=== PATIENT | female | born 1985 | race Caucasian/White ===

== ENCOUNTER → 2024-04-08 09:35 | Outpatient (CLI) | payer OTHER, SELFPAY ==
[2024-04-08 19:21] LABS: Add Manual Diff / Slide Review NO; Basophils Absolute Auto 100 /uL (0-100); Basophils Percent Auto 0.9 % (0-2); Eosinophils Absolute Auto 200 /uL (0-450); Hematocrit 39.7 % (36-46); Hemoglobin 13.8 g/dL (12.0-16.0); Lymphocytes Absolute Auto 2500 /uL (1100-4500); Lymphocytes Percent Auto 46.5 % (25-40); Mean Corpuscular HGB Conc 34.8 % (30-36); Mean Corpuscular Hemoglobin 29.1 PG (26-34); Mean Corpuscular Volume 83.7 fL (80-100); Monocytes Absolute Auto 400 /uL (0-900); Monocytes Percent Auto 7.4 % (3-14); Neutrophils Absolute Auto 2300 /uL (1500-7000); Neutrophils Percent Auto 42.2 % (50-75); Platelet Count 276 X10^3/uL (150-400); Red Blood Cell Count 4.75 X10^6/uL (4.0-5.2); Red Cell Distribution Width 12.7 % (11.6-14.8); White Blood Cell Count 5.5 X10^3/uL (4.5-11.0)
[2024-04-08 19:40] LABS: Alanine Aminotransferase 25 IU/L (<35); Albumin 4.2 g/dL (3.5-5.0); Albumin Globulin Ratio 1.4 (1.0-2.8); Alkaline Phosphatase 73 U/L (38-126); Aspartate Aminotransferase 28 IU/L (14-36); BUN Creatinine Ratio 18.5 (6-22); Bilirubin Total 0.6 mg/dL (0.2-1.3); Blood Urea Nitrogen 15 mg/dL (7-17); Calcium 9.1 mg/dL (8.4-10.2); Carbon Dioxide 23 mmol/L (22-32); Chloride 106 mmol/L (98-107); Cholesterol 183 mg/dL (140-199); Estimated Glomerular Filt Rate > 60 mL/min (>60); Glucose 89 mg/dL (70-100); HDL Cholesterol 68 mg/dL (40-60); HEMOLYSIS < 15 (0-50); LDL Cholesterol Calculated 96 mg/dL (<100); Sodium 137 mmol/L (137-145); Total Protein 7.2 g/dL (6.3-8.2); Triglycerides 96 mg/dL (35-150)
[2024-04-08 19:53] LABS: Vitamin D 25 Hydroxy (D3) 25.5 ng/mL (30.0-100.0)
[2024-04-08 20:08] LABS: Thyroid Stimulating Hormone 0.661 uIU/mL (0.47-4.68)
[2024-04-08 20:45] LABS: Folate 8.6 ng/mL (2.76-20.0); Vitamin B12 392 pg/mL (239-931)
== END ==
PROVIDERS: Family Provider Family Medicine; PCP Family Medicine; Visit Provider Family Medicine
DX: E66.9 Obesity, unspecified (principal); G47.00 Insomnia, unspecified; F41.9 Anxiety disorder, unspecified; R63.4 Abnormal weight loss; Z71.3 Dietary counseling and surveillance
CPT/HCPCS: 80053; 80061; 82306; 82607; 82746; 84443; 85025

== ENCOUNTER → 2024-08-12 15:30 | Outpatient (CLI) | payer OTHER, SELFPAY ==
--- NOTE | 2024-08-12 15:31 | DI.US.S_ITS ---
PROCEDURE: US PELVIC COMPLETE INDICATIONS: CHRONIC PAIN; DUB TECHNIQUE: Real-time scanning was performed of the pelvic organs, with image documentation. Additional endovaginal scanning was necessary due to incomplete visualization of the adnexal and endometrial structures by transabdominal scanning. COMPARISON: None. FINDINGS: Uterus: Uterus is anteverted and normal in size at 6.8 x 3.1 x 5.4 cm. The myometrium is homogeneous. The endometrium measures 9 mm combined thickness. Ovaries: The right ovary measures 1.8 x 2.5 x 2.0 cm, with a calculated ovarian volume of 4.7 cc. The left ovary measures 3.2 x 3.0 x 1.8 cm, with a calculated ovarian volume of 9.1 cc. Within the left ovary, there is a 1.7 x 1.5 x 1.7 cm thick-walled structure with central hypoechogenicity, likely representing a hemorrhagic cyst. The ovaries otherwise have a normal sonographic appearance. Less than 12 follicles can be seen in each ovary. No adnexal masses are seen. Other: No pathologic free abdominal or pelvic fluid. IMPRESSION: 1. Left ovarian 1.7 cm hemorrhagic cyst. This can be followed up in 2-3 menstrual cycles to confirm resolution. 2. Otherwise, no sonographic abnormality of the uterus or ovaries. We strive to produce accurate, complete, and clear reports of imaging services. To assist us in improving patient care, this report was composed using standard report templates and voice recognition software. Therefore, it may contain abnormal punctuation, insertions and/or omissions. Occasional wrong-word or sound-alike substitutions may occur. Though we review the report and make efforts to correct it, we do recommend that the report be read carefully in proper context to recognize any text inaccuracies. Dictated by: Nicholas Bhatt M.D. on 08/12/2024 at 19:53 Approved by: Nicholas Bhatt M.D. on 08/12/2024 at 19:56
== END ==
LOC: US 15:30
PROVIDERS: Family Provider Family Medicine; PCP Family Medicine; Referring Provider Family Medicine; Visit Provider Family Medicine
DX: N83.202 Unspecified ovarian cyst, left side (principal); R10.2 Pelvic and perineal pain; N93.9 Abnormal uterine and vaginal bleeding, unspecified; Z12.4 Encounter for screening for malignant neoplasm of cervix
CPT/HCPCS: 76830; 76856; 93975

== ENCOUNTER → 2024-08-13 11:30 | Outpatient (CLI) | payer OTHER, SELFPAY ==
[2024-08-13 19:38] LABS: Hematocrit 40.5 % (36-46); Hemoglobin 14.2 g/dL (12.0-16.0)
[2024-08-13 19:56] LABS: Erythrocyte Sedimentation Rate 8 MM/HR (0-20)
[2024-08-13 20:18] LABS: Thyroid Stimulating Hormone 1.04 uIU/mL (0.47-4.68)
[2024-08-13 20:23] LABS: Ferritin 36 ng/mL (6-137)
[2024-08-14 02:29] LABS: C-Reactive Protein Quant < 0.5 mg/dL (<1.0)
== END ==
PROVIDERS: Family Provider Family Medicine; PCP Family Medicine; Visit Provider Family Medicine
DX: N93.9 Abnormal uterine and vaginal bleeding, unspecified (principal); K59.00 Constipation, unspecified; R19.7 Diarrhea, unspecified; R10.9 Unspecified abdominal pain
CPT/HCPCS: 82728; 82784; 83516; 84443; 85014; 85018; 85651; 86140

== ENCOUNTER → 2024-09-24 11:07 | Outpatient (CLI) | payer OTHER, SELFPAY ==
[2024-09-24 19:56] LABS: Vitamin D 25 Hydroxy (D3) 32.2 ng/mL (30.0-100.0)
[2024-09-27 20:36] LABS: Deamidated Gliadin Ab IgA 5 units (0-19); Deamidated Gliadin Ab IgG 3 units (0-19); Immunoglobulin A,Qn 219 mg/dL (87-352); t-Transglutaminase IgA <2 U/mL (0-3)
[2024-10-04 15:10] LABS: DQ8 (DQA1 03XX, DQB1 0302) Positive (.)
== END ==
PROVIDERS: Family Provider Family Medicine; PCP Family Medicine; Visit Provider Family Medicine
DX: E55.9 Vitamin D deficiency, unspecified (principal); R89.4 Abnormal immunological findings in specimens from other organs, systems and tissues; K62.5 Hemorrhage of anus and rectum; R19.7 Diarrhea, unspecified; K59.00 Constipation, unspecified
CPT/HCPCS: 81377; 82306; 82784; 83516

== ENCOUNTER → 2025-01-30 14:36 | Outpatient (CLI) | payer OTHER, SELFPAY ==
--- NOTE | 2025-01-30 14:37 | DI.CT.S_ITS ---
PROCEDURE: CT FACIAL BONES WO CON INDICATIONS: Head injury 2 weeks ago with facial trauma. Headaches. TECHNIQUE: Noncontrast 2.5 mm thick axial images acquired from the mandible through the frontal sinuses, with coronal and sagittal reformatting. For radiation dose reduction, the following was used: automated exposure control, adjustment of mA and/or kV according to patient size. COMPARISON: None. FINDINGS: Image quality: Excellent. Bones and teeth: Orbital bo are intact. Sinus bo show no fracture or deformity. Nasal bones and septum are intact. Visualized portions of the mandible demonstrate no fractures or subluxation. Zygomatic arches are intact. Pterygoid plates are intact. Visualized portions of the skull base and auditory canals are intact. Sinuses: Mild maxillary sinus mucosal thickening. Mastoid air cells are aerated. Soft tissues: Small right frontal scalp hematoma. No enlarged lymph nodes. No soft tissue lacerations or debris. Vascular: Visualized vascular structures appear normal in the absence of contrast. Bony vascular foramina and canals are intact. IMPRESSION: No acute facial fractures. Dictated by: Alberto Bhagat M.D. on 01/30/2025 at 15:01 Approved by: Alberto Bhagat M.D. on 01/30/2025 at 15:04
--- NOTE | 2025-01-30 14:37 | DI.CT.S_ITS ---
PROCEDURE: CT HEAD/BRAIN WO CON INDICATIONS: Head injury 2 weeks ago with facial trauma. Headaches TECHNIQUE: Noncontrast 4.5 mm thick angled axial sections acquired from the foramen magnum to the vertex, with coronal and sagittal reformats. For radiation dose reduction, the following was used: automated exposure control, adjustment of mA and/or kV according to patient size. COMPARISON: None. FINDINGS: Image quality: Diagnostic. CSF spaces: Basal cisterns are patent. No extra-axial fluid collections. Ventricles are normal in size and shape. Brain: No midline shift. No intracranial masses or hemorrhage. Kapoor-white matter interface is normal. Skull and face: Small right frontal scalp hematoma without underlying fracture. Calvarium and visualized facial bones are intact, without suspicious lesions. Sinuses: Visualized sinuses and mastoids are clear. IMPRESSION: No acute intracranial pathology. Dictated by: Alberto Bhagat M.D. on 01/30/2025 at 15:00 Approved by: Alberto Bhagat M.D. on 01/30/2025 at 15:01
== END ==
LOC: CT 14:37
PROVIDERS: Family Provider Family Medicine; PCP Family Medicine; Referring Provider Physician Assistant; Visit Provider Physician Assistant
DX: S00.03XA Contusion of scalp, initial encounter (principal); S09.93XA Unspecified injury of face, initial encounter; S09.90XA Unspecified injury of head, initial encounter; R51.9 Headache, unspecified; X58.XXXA Exposure to other specified factors, initial encounter
CPT/HCPCS: 70450; 70486

== ENCOUNTER → 2025-02-25 15:41 | Outpatient (CLI) | payer OTHER, SELFPAY ==
--- NOTE | 2025-02-25 15:41 | DI.MRI.S_ITS ---
PROCEDURE: MR HEAD/BRAIN WO CON INDICATIONS: headaches, brain dysfunction p head injury last month TECHNIQUE: Noncontrast axial T1 spin echo, axial T2 fast spin echo, sagittal and axial FLAIR, coronal T2 fast spin echo, axial gradient echo, axial diffusion and ADC through the brain. COMPARISON: [facility], CT, CT HEAD/BRAIN WO CON, 01/30/2025, 14:42. FINDINGS: Image quality: Excellent. CSF Spaces: Basal cisterns are patent. No extra-axial fluid collections. Ventricles are normal in size and shape. Brain: No intracranial masses or hemorrhage. Kapoor/white matter interface is normal. Brainstem appears normal. Diffusion-weighted images demonstrate no acute infarct. No chronic ischemic insults. Normal intravascular flow voids are present. Skull and face: Calvarium has normal marrow signal. Orbits appear normal. Sinuses: Sinuses demonstrate mild scattered areas of mucosal thickening. IMPRESSION: 1. No acute intracranial process. 2. Scattered areas of sinus mucosal thickening. Dictated by: Korin Welch M.D. on 02/25/2025 at 16:57 Approved by: Korin Welch M.D. on 02/25/2025 at 16:58
== END ==
LOC: MRI 15:41
PROVIDERS: Family Provider Family Medicine; PCP Family Medicine; Referring Provider Physician Assistant Medical; Visit Provider Physician Assistant Medical
DX: S06.0XAA Concussion with loss of consciousness status unknown, initial encounter (principal); X58.XXXA Exposure to other specified factors, initial encounter
CPT/HCPCS: 70551

== ENCOUNTER 2025-04-23 12:45 | Outpatient (RCR) | payer OTHER, SELFPAY ==
--- NOTE | 2025-04-23 14:27 | OT.OP.DC ---
Visit Care Team Role Provider Type Riya Dorado MD Attending Provider Physician Family Provider Primary Care Provider Referring Provider Address: [address] [place] [address], [id number] Email: [email or web address] OT Outpatient OT Outpatient Adult Evaluation Start: 04/23/25 14:16 Freq: Status: Active Protocol: Document 04/23/25 14:17 AMS (Rec: 04/23/25 14:27 AMS Desktop) General Information - Adult Session Time Visit Start Time 13:00 Visit Stop Time 13:45 Setting Treatment Setting Outpatient Care Visit Type Note Type Initial Evaluation Assessment/Plan Assessment Treatment Assessment Lucero is 39 years-old and is right hand dominant. She was seen w/ Virgie Holloway present. Medical history is significant for depression, headaches, surgery removal of tonsils (~1970s) and appendix (?) 2016, and TBI, post- concussion syndrome. She reported falling and hitting her head in December of 2024. 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 She returned part-time, then was directed to take leave. She completed Pain Assessment Grid and indicated 4-6 out of 10 relative to head. She does report recently starting headache medication. She reported that it takes longer to do higher level ADLs, such as meal preparation and grocery shopping. She does use a list for grocery shopping. She has returned to driving. She is wearing sunglasses when lights bother her. She completed the [place] Making Test Part A in 28.76 sec w/ 1 error immediately self- identified and corrected; she completed the [place] Making Test Part B in 45.88 sec. No further outpatient OT is needed at this time. Plan Patient Recommendations Discharge from Occupational Therapy Functional Wrist/Hand Scan Hand Side Sensory Assessment Sensory Profile2
--- NOTE | 2025-04-23 15:47 | OT.OP.DC ---
Visit Care Team Role Provider Type Riya Dorado MD Attending Provider Physician Family Provider Primary Care Provider Referring Provider Address: [address] [place] [address], [id number] Email: [email or web address] Outpatient OT Outpatient Adult Evaluation Start: 04/23/25 14:16 Freq: Status: Active Protocol: Document 04/23/25 14:17 AMS (Rec: 04/23/25 14:27 AMS Desktop) General Information - Adult Session Time Visit Start Time 13:00 Visit Stop Time 13:45 Setting Treatment Setting Outpatient Care Visit Type Note Type Initial Evaluation Assessment/Plan Assessment Treatment Assessment Lucero is 39 years-old and is right hand dominant. She was seen w/ Virgie Holloway OTR/L present. Medical history is significant for depression, headaches, surgery removal of tonsils (~1970s) and appendix (?) 2015, and TBI/post- concussion. Her PCP is primarily overseeing her care; a neurologist is trying to meet her needs via telehealth. She reported falling and hitting her head in December of 2024. 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 Since TBI/post- concussion, she tried to return to work part-time; however, she was directed to take leave. She is currently not working any hours at her organization. She reportedly that she would like to return to work in approx 2 weeks where as her PCP thinks it is more likely that she will return to work in May 2025. She works primarily via [employer] and works in the basement of her home. She has had an initial evaluation w/ outpatient [facility] [employer] [employer] here at [facility]. She was not accepted for the program at [facility]. She completed Pain Assessment Grid and indicated 4-6 out of 10 relative to head. She has recently started taking a headache medication. She reported that it takes longer to do higher level ADLs, such as meal preparation and grocery shopping (e.g., she uses a list for grocery shopping via prior- status no list). She is reading and has returned to driving and can listen to music while driving. She is wearing sunglasses when lights bother her; she is trying to limit her screen time. She has used some apps on her phone (including [employer]) and has tried to start to learn a second language, [place]. She completed the [place] Making Test Part A in 28.76 sec w/ 1 error immediately self- identified and corrected; she completed the [place] Making Test Part B in 45.88 sec. Given that Lucero is seeing outpatient [employer], no further outpatient OT is needed at this time. Plan Patient Recommendations Discharge from Occupational Therapy Functional Wrist/Hand Scan Hand Side Sensory Assessment Sensory Profile2
== END 2025-04-25 13:41 | disposition home or self-care (01) ==
LOC: OT 12:45
PROVIDERS: Family Provider Family Medicine; PCP Family Medicine; Referring Provider Family Medicine; Visit Provider Family Medicine
DX: Z56.89 Other problems related to employment (principal); F09 Unspecified mental disorder due to known physiological condition
CPT/HCPCS: 97165